=== PATIENT | female | born 1995 | race Caucasian/White ===

== ENCOUNTER 2019-07-08 15:05 | Day surgery (SDC) | payer OTHER ==
[2019-07-08 15:57] VITALS: BP 123/68; TEMP 98.7; BMI 36.8
[2019-07-08] MEDS ORDERED: hydrALAZINE 20 MG/ML VIAL SLOW IVP PRN (16:27)
--- NOTE | 2019-07-08 16:29 | PDOC.LDHP ---
Labor and Delivery H&P Chief complaint: contractions HPI: 24 yo W [address] sees [address] Sargent here for CTX since last Saturday. No LOF, no VB, good FM, no recent trauma, no fevers. States Dr sargent checked CX last and was 2cm. EGA 36 weeks Review of Systems: Complete ROS done and as per HPI Current gestational age (weeks): 36 Due date: 07/30/19 Dating criteria: last menstrual period Grav: 2 Para: 1 OB History Details: 208 Current complications: none Abnormal US findings: No Past Medical History: None Current medications: none Previous surgical history: other ([facility]) Allergies/Adverse Reactions: Allergies Allergy/AdvReac Type Severity Reaction Status Date / Time No Known Allergies Allergy Unverified 07/08/19 15:49 Social history: none - Physical Exam Vital signs reviewed and normal: yes (123/68 91 20 afebrile) General: NAD Abdomen: gravid Extremeties: no edema FHT: category 1 [place] contractions every: few rare CTX - Vaginal Exam cm dilated: 2 Effacement: 75% (70%) Station: -2 - Assessment Latent labor at 36 weeks (Late ), no change from last week - Plan Plan: observation in L&D (Offer pain meds; baby looks reassuring on monitor; has follow up Saturday this week. Reviewed that best is to continue with gestation until full term.)
== END 2019-07-08 17:00 | disposition home or self-care (01) ==
LOC: L&D/OP 15:05
PROVIDERS: ATTEND Family Medicine
DX: O47.03 False labor before 37 completed weeks of gestation, third trimester (principal); Z3A.36 36 weeks gestation of pregnancy
CPT/HCPCS: 99282

== ENCOUNTER 2019-07-21 09:44 | Inpatient (IN) | payer OTHER ==
[2019-07-21] MEDS ORDERED: Lidocaine 1% (PF) 30 ML VIAL SC PRN (10:34)
[2019-07-21] MEDS ORDERED: Diphenoxylate HCl/Atropine Tablet PO PRN (10:34)
[2019-07-21] MEDS ORDERED: Butorphanol Tartrate 1 MG/ML VIAL SLOW IVP PRN (10:34)
[2019-07-21] MEDS ORDERED: hydrALAZINE 20 MG/ML VIAL SLOW IVP PRN ×2 (10:34→18:35)
[2019-07-21] MEDS ORDERED: Methylergonovine 0.2 MG/ML VIAL IM PRN (10:34)
[2019-07-21] MEDS ORDERED: Carboprost 250 MCG/ML AMP IM PRN (10:34)
[2019-07-21] MEDS ORDERED: Ondansetron PF 4 MG/2 ML Vial IVP PRN ×2 (10:34→18:35)
[2019-07-21] MEDS ORDERED: Ibuprofen 800 MG TAB PO PRN (10:34)
[2019-07-21] MEDS ORDERED: Misoprostol 200 MCG TAB PR PRN (10:34)
[2019-07-21] MEDS ORDERED: HYDROcodone/Acetaminophen 5/325 mg Tablet PO PRN ×2 (10:34→18:35)
[2019-07-21] MEDS ORDERED: Promethazine HCl 25 MG/ML VIAL IM PRN ×2 (10:34→18:35)
[2019-07-21] MEDS: Lactated Ringer's 1,000 ML IV SCH ×2 (10:43→15:23)
[2019-07-21] MEDS ORDERED: NS w/ Oxytocin 10 units 500 ML IV SCH ×2 (10:45)
[2019-07-21] MEDS ORDERED: Penicillin G Potassium 5 MILL.UNITS in Sodium Chloride 0.9% 100 ML IVPB SCH (10:45)
[2019-07-21 11:15] LABS: Mean Corpuscular HGB CONC 34.1 g/dL (32.0-36.0); Mean Corpuscular Hemoglobin 30.2 pg (27.0-31.0); Mean Corpuscular Volume 88.7 fL (78.0-98.0); Platelet Count 316 thou/uL (130-400); RBC Distribution Width 12.1 % (11.5-14.5); Red Blood Cell (RBC) Count 4.31 mill/uL (4.20-5.40); White Blood Cell (WBC) Count 17.3 thou/uL (4.8-10.8)
[2019-07-21 11:17] VITALS: BMI 36.8
[2019-07-21 11:56] LABS: Syphilis Antibody Nonreactive (Nonreactive); Syphilis Antibody Index 0.13 S/CO (<1.00 Non-Reactive)
[2019-07-21 11:57] LABS: HBSAg Index 0.16 S/CO (0-0.99); Hep B Surf Ag Non-Reactive S/CO (NonReactive)
[2019-07-21] MEDS ORDERED: Fentanyl 4 mcg/Bup 0.1% Cadd 100 ML ONE (12:52)
[2019-07-21] MEDS: Penicillin G 2.5 MILL.units 2.5 MILL.UNITS in Premix Bag 1 BAG IVPB SCH ×2 (15:03→16:11)
[2019-07-21] MEDS ORDERED: Bupivacaine 0.25% HCL 30 ML VIAL ONE (15:29)
[2019-07-21] MEDS: NS / Oxytocin 40 units/1000ml 1,000 ML IV PRN ×2 (16:29→18:11)
[2019-07-21] MEDS ORDERED: diphenhydrAMINE 25 MG CAP PO PRN (18:35)
[2019-07-21] MEDS ORDERED: Milk Of Magnesia 30 ML UDCUP PO PRN (18:35)
[2019-07-21] MEDS ORDERED: NS / Oxytocin 40 units/1000ml 1,000 ML IV SCH (18:35)
[2019-07-21] MEDS ORDERED: Benzocaine-Menthol 82.5 ML CAN TOP PRN (18:35)
[2019-07-21] MEDS ORDERED: Adacel (T-DAP) 0.5 ML SYRINGE IM ONE (18:35)
[2019-07-21] MEDS ORDERED: Bisacodyl 10 MG SUPP PR PRN (18:35)
[2019-07-21] MEDS ORDERED: CEFAZOLIN 2 GM in Premix Bag 1 BAG IVPB SCH (21:45)
[2019-07-21] MEDS: Docusate Calcium (SURFAK) 240 MG CAP PO SCH (22:43)
[2019-07-21] MEDS: Ibuprofen 800 MG TAB PO SCH (22:43)
[2019-07-21] MEDS: HYDROcodone/Acetaminophen 5/325 mg Tablet PO PRN (22:43)
[2019-07-21] MEDS: Ferrous Sulfate 325 MG TAB PO SCH (23:37)
[2019-07-22] MEDS: Ibuprofen 800 MG TAB PO SCH ×3 (05:08→22:43)
[2019-07-22] MEDS: Ferrous Sulfate 325 MG TAB PO SCH ×2 (08:33→17:40)
[2019-07-22] MEDS: Docusate Calcium (SURFAK) 240 MG CAP PO SCH ×2 (08:34→22:43)
[2019-07-22] MEDS: Prenatal Vitamin 1 TAB PO SCH (08:34)
[2019-07-22] MEDS: HYDROcodone/Acetaminophen 5/325 mg Tablet PO PRN (18:23)
[2019-07-23] MEDS: Ibuprofen 800 MG TAB PO SCH (06:02)
[2019-07-23] MEDS: Ferrous Sulfate 325 MG TAB PO SCH (07:46)
[2019-07-23 08:51] VITALS: BP 105/62; TEMP 98
[2019-07-23] MEDS: Docusate Calcium (SURFAK) 240 MG CAP PO SCH (09:46)
[2019-07-23] MEDS: Prenatal Vitamin 1 TAB PO SCH (09:46)
== END 2019-07-23 11:15 | disposition home or self-care (01) | DRG 807 ==
LOC: L&D 09:44 → 3SW 20:22
PROVIDERS: ADMIT Family Medicine; ATTEND Family Medicine
PROC: 10E0XZZ Delivery of Products of Conception, External Approach (ICD-10-PCS; principal; 2019-07-21)
PROC: 0KQM0ZZ Repair Perineum Muscle, Open Approach (ICD-10-PCS; 2019-07-21)
PROC: 10907ZC Drainage of Amniotic Fluid, Therapeutic from Products of Conception, Via Natural or Artificial Opening (ICD-10-PCS; 2019-07-21)
PROC: 3E0P7VZ Introduction of Hormone into Female Reproductive, Via Natural or Artificial Opening (ICD-10-PCS; 2019-07-21)
PROC: 3E033VJ Introduction of Other Hormone into Peripheral Vein, Percutaneous Approach (ICD-10-PCS; 2019-07-21)
DX: O99.824 Streptococcus B carrier state complicating childbirth (principal); Z37.0 Single live birth; O70.1 Second degree perineal laceration during delivery; Z3A.38 38 weeks gestation of pregnancy
CPT/HCPCS: 36415; 51702; 85027; 86780; 86850; 86900; 86901; 87340; J2540; J2590; J3490; S0020